=== PATIENT | male | born 1935 | race Two or more races ===

== ENCOUNTER 2020-12-11 10:34 | Inpatient (IN) | payer MEDICARE, OTHER ==
[~2020-12-11] VITALS: Ht 170.2 cm; Wt 60.3 kg
--- NOTE | 2020-12-11 10:45 | NUR ---
The patient is [id number], c/o right hip pain s/p tripped and fall, -ko,-deformity. The patient rates pain 8/10. Denies any numbness/tingling in the extremity. In room air and denies SOB. Respiration regular and unlabored. Warm blanket provided for comfort. Will continue to monitor the patient.
--- NOTE | 2020-12-11 12:38 | NUR ---
IV LINE ESTABLISHED ON LAC 20G. BLOOD DRAWN. COVID SWAB DONE
[2020-12-11 12:50] LABS: BASOPHILS # (AUTO) 0.1 /CMM (0.0-0.2); BASOPHILS % (AUTO) 0.7 % (0.0-2.0); EOSINOPHILS % (AUTO) 0.4 % (0.0-6.0); HEMATOCRIT 43 % (39-51); LYMPHOCYTES # (AUTO) 0.5 /CMM (0.8-4.8); LYMPHOCYTES % (AUTO) 6.4 % (20.0-44.0); MEAN CORPUSCULAR HGB CONC 33 g/dl (31.0-36.0); MEAN CORPUSCULAR VOLUME 97 fL (80-96); MONOCYTES # (AUTO) 0.5 /CMM (0.1-1.30); MONOCYTES % (AUTO) 6.1 % (2.0-12.0); NEUTROPHILS # (AUTO) 7.3 /CMM (1.8-8.9); NEUTROPHILS % (AUTO) 86.4 % (43.0-81.0); PLATELET COUNT (AUTO) 195 /CMM (150-450); RED BLOOD CELL COUNT(AUTO) 4.43 MIL/uL (4.5-6.0); WHITE BLOOD COUNT (AUTO) 8.4 K/uL (4.3-11.0)
[2020-12-11 13:02] LABS: ALBUMIN 3.7 g/dL (3.4-5.0); BILIRUBIN,DIRECT 0.3 mg/dL (0.0-0.2); BILIRUBIN,TOTAL 1.9 mg/dL (0.2-1.0); CREATININE 0.8 mg/dL (0.6-1.3); POTASSIUM 4.3 mmol/L (3.5-5.1); TOTAL PROTEIN, SERUM 7.9 g/dL (6.4-8.2)
--- NOTE | 2020-12-11 13:21 | NUR ---
CALLED NURSING SUP FOR NEGATIVE COVID RESULT.
--- NOTE | 2020-12-11 14:45 | NUR ---
pt transport to unit on gurney with emt @ bedside on stable condition.
--- NOTE | 2020-12-11 15:15 | NUR ---
wheeled patient via gurney accompanied by RN and emt in no distress. RN at bedside to assume care.
[2020-12-11] MEDS ORDERED: Z GUARD REMEDY 2 OZ OINT TP PRN (15:30)
[2020-12-11] MEDS ORDERED: ZOLPIDEM TARTRATE 5 MG TABLET PO PRN (15:30)
[2020-12-11] MEDS ORDERED: MAGNESIUM HYDROXIDE 30 ML UDC PO PRN (15:30)
[2020-12-11] MEDS ORDERED: ONDANSETRON HCL/PF 4 MG/2 ML VIAL IVP PRN (15:30)
[2020-12-11] MEDS ORDERED: MORPHINE SULFATE INJ 2 MG/ML DISP.SYRIN IV PRN (15:30)
[2020-12-11] MEDS ORDERED: ACETAMINOPHEN 325 MG TABLET PO PRN (15:30)
[2020-12-11] MEDS ORDERED: MAG HYDROX/AL HYDROX/SIMETH 30 ML UDC PO PRN (15:30)
[2020-12-11 16:00] VITALS: BP 163/96
--- NOTE | 2020-12-11 18:06 | NUR ---
RN CLOSING NOTE PATIENT ADMITTED FROM ER, ADMIT DX IS OSTEOPENIA. PATIENT IN BED, [place], REMAINS AO X 4, ABLE TO RESPONDS ALL STIMULI. SKIN IS WARM TO TOUCH, KEEP CLEAN/DRY, REFUSED SKIN CHECK DUE TO RIGHT HIP PAIN. RESPIRATORY EVEN AND UNLABORED ON ROOM AIR. KEPT ELEVATED HOB FOR ENSURE AIRWAY AND ASPIRATION PRECAUTION ALSO LOWEST BED POSITION FOR SAFETY. WILL ENDORSE EXHAUST MACHINE OPERATOR.
[2020-12-11] MEDS: HYDROCODONE/APAP 5/325MG TABLET PO PRN (18:23)
--- NOTE | 2020-12-11 18:24 | NUR ---
PATIENT REFUSED SCD FOR DVT PROPHYLAXIS.
--- NOTE | 2020-12-11 19:15 | NUR ---
MS RN OPENING NOTES: RECEIVED PATIENT IN BED, AWAKE. RESIGHINI. NO S/S OF DISTRESS NOTED. NO COMPLAIN OF PAIN. CALL LIGHT WITHIN REACH. BED ALARM ON. BED IN LOWEST AND LOCKED POSITION. DVT PUMPS REFUSED.
[2020-12-11 20:00] VITALS: BP 136/78
[2020-12-11] MEDS: ENOXAPARIN SODIUM 40 MG/0.4 ML DISP.SYRIN SQ SCH (20:35)
[2020-12-12] MEDS: HYDROCODONE/APAP 5/325MG TABLET PO PRN (04:10)
[2020-12-12 06:24] LABS: BASOPHILS % (AUTO) 0.8 % (0.0-2.0); EOSINOPHILS % (AUTO) 1.2 % (0.0-6.0); HEMATOCRIT 40 % (39-51); HEMOGLOBIN 13.3 g/dL (13.5-17.5); LYMPHOCYTES # (AUTO) 0.7 /CMM (0.8-4.8); LYMPHOCYTES % (AUTO) 12.3 % (20.0-44.0); MEAN CORPUSCULAR HGB CONC 33 g/dl (31.0-36.0); MEAN CORPUSCULAR VOLUME 95 fL (80-96); MONOCYTES # (AUTO) 0.8 /CMM (0.1-1.30); MONOCYTES % (AUTO) 13.1 % (2.0-12.0); NEUTROPHILS # (AUTO) 4.3 /CMM (1.8-8.9); NEUTROPHILS % (AUTO) 72.6 % (43.0-81.0); PLATELET COUNT (AUTO) 178 /CMM (150-450); RED BLOOD CELL COUNT(AUTO) 4.19 MIL/uL (4.5-6.0)
--- NOTE | 2020-12-12 07:37 | NUR ---
MS/RN NOTE RECEIVED REPORT FROM CLOTH PACKER NURSE. PATIENT SEEN LAYING IN HOSPITAL BED. A/O X4 HARD OF HEARING, NO ACUTE DISTRESS NOTED. PATIENT ON ROOM AIR, TOLERATING WELL, NO SOB NOTED, BREATHING EVEN NON LABORED. ALL SAFETY MEASURES IN PLACE, BED LOCKED AND IN LOWEST POSITION, CALL LIGHT WITHIN REACH. WILL CONTINUE TO MONITOR AND ENSURE SAFETY.
[2020-12-12 07:54] LABS: CALCIUM, SERUM 8.5 mg/dL (8.5-10.1); CARBON DIOXIDE 30 mmol/L (21-32); CHLORIDE 99 mmol/L (98-107); GLUCOSE 117 mg/dL (74-106); MAGNESIUM 1.9 mg/dL (1.8-2.4); PHOSPHORUS 2.8 mg/dL (2.5-4.9); SODIUM SERUM 135 mmol/L (136-145); UREA NITROGEN, BLOOD 13 mg/dL (7-18)
[2020-12-12 08:00] VITALS: BP 164/111
[2020-12-12 08:18] LABS: CREATININE 0.8 mg/dL (0.6-1.3)
[2020-12-12 08:57] LABS: CHOLESTEROL 214 mg/dL (<200); HDL CHOLESTEROL 60 mg/dL (40-60); LDL 141 mg/dL (0-99); TRIGLYCERIDES 71 mg/dL (30-150)
[2020-12-12] MEDS: VALSARTAN 80 MG TABLET PO SCH (08:58)
[2020-12-12 16:00] VITALS: BP 123/74
--- NOTE | 2020-12-12 18:21 | NUR ---
MS/RN CLOSING NOTE PATIENT SEEN LAYING IN HOSPITAL BED. A/O X4 HARD OF HEARING, NO ACUTE DISTRESS NOTED. PATIENT ON ROOM AIR, TOLERATING WELL, NO SOB NOTED, BREATHING EVEN NON LABORED. ALL SAFETY MEASURES IN PLACE, BED LOCKED AND IN LOWEST POSITION, CALL LIGHT WITHIN REACH. ALL NEEDS METT THROUGHOUT THE SHIFT. WILL ENDORSE TO PHARMACY PICKING TECHNICIAN NURSE.
--- NOTE | 2020-12-12 19:05 | NUR ---
MS RN OPENING NOTES: RECEIVED PATIENT IN BED, AWAKE, A/O X4, NO S/S OF DISTRESS NOTED. CALL LIGHT WITHIN REACH. BED ALARM ON. BED IN LOWEST AND LOCKED POSITION.
[2020-12-12 20:00] VITALS: BP 121/75
[2020-12-12] MEDS: ENOXAPARIN SODIUM 40 MG/0.4 ML DISP.SYRIN SQ SCH (21:34)
[2020-12-13] MEDS: HYDROCODONE/APAP 5/325MG TABLET PO PRN (04:34)
--- NOTE | 2020-12-13 05:56 | NUR ---
MS RN CLOSING NOTES: PATIENT IN BED, AWAKE, A/O X4. NO S/S OF DISTRESS NOTED. CALL LIGHT WITHIN REACH. BED ALARM ON. BED IN LOWEST AND LOCKED POSITION. NO ABDUCTION OF THE RIGHT HIP, INSTRUCTED THE PATIENT, VERBALIZED UNDERSTANDING. PATIENT ABLE TO TURN A LITTLE BIT TO THE LEFT SIDE WITH HELP AND WITH THE PILLOW BETWEEN THE LEGS, SKIN ASSESSMENT ON THE BACK AND SACRAL AREA DONE, WNL, NO SKIN PROBLEM. PATIENT VOIDED ON THE PAD, CLEANSED PERINEAL WITH SOAP AND WATER, KEPT DRY AND PAD CHANGED. PATIENT TOLERATED. WITH DVT PUMPS ON BOTH LEGS.
[2020-12-13 06:18] LABS: BASOPHILS % (AUTO) 0.3 % (0.0-2.0); EOSINOPHILS % (AUTO) 1.5 % (0.0-6.0); HEMATOCRIT 41 % (39-51); HEMOGLOBIN 13.6 g/dL (13.5-17.5); LYMPHOCYTES # (AUTO) 0.8 /CMM (0.8-4.8); LYMPHOCYTES % (AUTO) 12.6 % (20.0-44.0); MEAN CORPUSCULAR HGB CONC 33 g/dl (31.0-36.0); MEAN CORPUSCULAR VOLUME 96 fL (80-96); MONOCYTES # (AUTO) 0.6 /CMM (0.1-1.30); MONOCYTES % (AUTO) 10.8 % (2.0-12.0); NEUTROPHILS # (AUTO) 4.5 /CMM (1.8-8.9); NEUTROPHILS % (AUTO) 74.8 % (43.0-81.0); PLATELET COUNT (AUTO) 183 /CMM (150-450); RED BLOOD CELL COUNT(AUTO) 4.32 MIL/uL (4.5-6.0)
[2020-12-13 06:35] LABS: CALCIUM, SERUM 8.3 mg/dL (8.5-10.1); CREATININE 0.7 mg/dL (0.6-1.3); MAGNESIUM 1.7 mg/dL (1.8-2.4)
--- NOTE | 2020-12-13 07:15 | NUR ---
MS RN OPENING NOTES PATIENT IN BED EATING BREAKFAST, ALERT AND ORIENTED X 4. NO SIGNS OF DISTRESS OR SHORTNESS OF BREATH NOTED. SAFETY MEASURES IN PLACE, CALL LIGHT WITHIN REACH, BED ALARM ON, BED IN LOWEST POSITION. INSTRUCTED PATIENT ABOUT NO ABDUCTION OF THE RIGHT HIP, PATIENT VERBALIZED UNDERSTANDING. WILL CONTINUE TO MONITOR
[2020-12-13 07:48] VITALS: BP 131/90
[2020-12-13] MEDS: VALSARTAN 80 MG TABLET PO SCH (09:50)
[2020-12-13] MEDS: Magnesium 1GM/D5W 100ML PREMIX 100 ML IV SCH ×2 (09:51→12:06)
[2020-12-13 16:21] VITALS: BP 97/60
[2020-12-13] MEDS: GLUCERNA SHAKE 237 ML CAN PO SCH (17:36)
--- NOTE | 2020-12-13 19:00 | NUR ---
MS RN CLOSING NOTES PATIENT IN BED, ALERT AND ORIENTED X 4. NO SIGNS OF DISTRESS OR SHORTNESS OF BREATH NOTED. SAFETY MEASURES IN PLACE, CALL LIGHT WITHIN REACH, BED ALARM ON, BED IN LOWEST POSITION. INSTRUCTED PATIENT ABOUT NO ABDUCTION OF THE RIGHT HIP, PATIENT VERBALIZED UNDERSTANDING. WILL ENDORSE TO RE ETCHER NURSE FOR CONTINUITY OF CARE
--- NOTE | 2020-12-13 19:15 | NUR ---
MS/RN OPENING NOTE RECEIVED PATIENT RESTING IN BED. AWAKE, ALERT AND ORIENTED X 3. ABLE TO MAKE NEEDS KNOWN. NO COMPLAINTS OF PAIN AT THIS TIME. RESPIRATIONS EVEN AND UNLABORED. IV ACCESS TO LEFT AC INTACT, PATENT AND SALINE LOCKED. PATIENT IS WBAT TO RLE WITH NO ABDUCTION OF RIGHT HIP. CALL LIGHT WITHIN REACH. ASPIRATION, FALL AND SAFETY PRECAUTIONS MAINTAINED. WILL CONTINUE TO MONITOR.
[2020-12-13 20:00] VITALS: BP 100/62
[2020-12-13] MEDS: ENOXAPARIN SODIUM 40 MG/0.4 ML DISP.SYRIN SQ SCH (20:25)
[2020-12-14] MEDS: HYDROCODONE/APAP 5/325MG TABLET PO PRN ×3 (04:40→21:58)
--- NOTE | 2020-12-14 05:00 | NUR ---
MS/RN NOTE PATIENT WITH C/O PAIN TO RIGHT HIP, YELLING OUT WHEN TURNING IN BED. GIVEN PRN NORCO WITH POSITIVE EFFECT.
--- NOTE | 2020-12-14 06:20 | NUR ---
MS/RN CLOSING NOTE PATIENT CURRENTLY RESTING IN BED. AWAKE, ALERT AND ORIENTED X 3. ABLE TO MAKE NEEDS KNOWN. NO COMPLAINTS OF PAIN AT THIS TIME. RESPIRATIONS EVEN AND UNLABORED. IV ACCESS TO LEFT AC INTACT, PATENT AND SALINE LOCKED. PATIENT IS WBAT TO RLE WITH NO ABDUCTION OF RIGHT HIP. CALL LIGHT WITHIN REACH. ASPIRATION, FALL AND SAFETY PRECAUTIONS MAINTAINED. WILL ENDORSE PLAN OF CARE TO ONCOMING SHIFT.
[2020-12-14 06:30] LABS: CALCIUM, SERUM 8.7 mg/dL (8.5-10.1); CREATININE 0.7 mg/dL (0.6-1.3); MAGNESIUM 2.2 mg/dL (1.8-2.4); POTASSIUM 3.8 mmol/L (3.5-5.1)
[2020-12-14 08:00] VITALS: BP 119/73
--- NOTE | 2020-12-14 08:00 | NUR ---
RN OPENING NOTE PATIENT AWAKE IN BED WATCHING TELEVISION. A/O X3 AND UPPER SORBIAN SPEAKING. CURRENTLY ON RA WITH NO SOB OR RESPIRATORY DISTRESS PRESENT.. NO COMPLAINT OF PAIN OR NAUSEA. NO EDEMA PRESENT. HEEL REDNESS PRESENT. ON BEDREST DUE TO R HIP FX. L LE SKIN TEAR PRESENT. HL PRESENT ON L AC 20G. SAFETY MEASURES IN PLACE. SIDE RAILS RAISED. BED LOWERED. CALL LIGHT WITHIN REACH. WILL CONTINUE TO MONITOR.
[2020-12-14] MEDS: VALSARTAN 80 MG TABLET PO SCH (08:54)
[2020-12-14] MEDS: GLUCERNA SHAKE 237 ML CAN PO SCH ×3 (08:55→17:08)
--- NOTE | 2020-12-14 09:35 | NUR ---
WOUND CARE CONSULT: PT PRESENTS WITH CLOSED SKIN TEAR TO LEFT LOWER LEG AND DISCOLORATION TO LOWER LEGS, PRESENT ON ADMISSION. PT REFUSED TO TURN FOR FULL SKIN ASSESSMENT AND BACK AND BUTTOCKS. PT REPORTS RT HIP PAIN. RN AWARE. RECOMMENDATIONS MADE FOR SKIN PROTECTION. DISCUSSED WITH NURSING STAFF. IN AGREEMENT WITH PLAN OF CARE. Addendum: 12/14/20 at 0937 by SHARYN FLAHERTY Amended: Links added. Addendum: 12/14/20 at 1013 by SHARYN MCKEEU PT ALLOWED SKIN ASSESSMENT OF BACK AND SACRUM AFTER HAVING PAIN MEDICATION. BLANCHABLE REDNESS NOTED TO SACRUM. RECOMMENDATIONS MADE FOR SKIN PROTECTION AND DISCUSSED WITH NURSING STAFF.
[2020-12-14 15:50] VITALS: BP 108/60
--- NOTE | 2020-12-14 18:18 | NUR ---
RN CLOSING NOTE PATIENT AWAKE IN BED WATCHING TELEVISION. A/O X3 AND [place] SPEAKING. CURRENTLY ON RA WITH NO SOB OR RESPIRATORY DISTRESS PRESENT.. NO COMPLAINT OF PAIN OR NAUSEA. NO EDEMA PRESENT. HEEL REDNESS PRESENT. ON BEDREST DUE TO R HIP FX. L LE SKIN TEAR PRESENT. HL PRESENT ON L AC 20G. ROUTINE MEDS GIVEN. SAFETY MEASURES IN PLACE. SIDE RAILS RAISED. BED LOWERED. CALL LIGHT WITHIN REACH. REPORT TO BE GIVEN TO NIGHT NURSE FOR DOE
--- NOTE | 2020-12-14 19:15 | NUR ---
MS RN OPENING NOTES: RECEIVED PATIENT IN BED, AWAKE, A/O X3. NO S/S OF DISTRESS NOTED. CALL LIGHT WITHIN REACH. BED ALARM ON. BED IN LOWEST AND LOCKED POSITION. WITH CONDOM CATHETER, DRAINING YELLOW COLORED URINE. WITH DVT PUMPS ON BILATERAL LEGS ON.
[2020-12-14 20:00] VITALS: BP 118/67
[2020-12-14] MEDS: ENOXAPARIN SODIUM 40 MG/0.4 ML DISP.SYRIN SQ SCH (22:01)
[2020-12-15] MEDS: HYDROCODONE/APAP 5/325MG TABLET PO PRN ×3 (04:56→16:58)
--- NOTE | 2020-12-15 05:44 | NUR ---
MS RN CLOSING NOTES: PATIENT IN BED, ASLEEP, NO S/S OF DISTRESS NOTED. CALL LIGHT WITHIN REACH. BED ALARM ON. BED IN LOWEST AND LOCKED POSITION. BEDREST. TURNED AND REPOSITIONED [id number]. OFFLOADED. NO ABDUCTION OF THE RIGHT HIP DONE. CONDOM CATHETER INTACT.
[2020-12-15 06:26] LABS: BASOPHILS % (AUTO) 0.7 % (0.0-2.0); EOSINOPHILS % (AUTO) 4.4 % (0.0-6.0); HEMATOCRIT 40 % (39-51); LYMPHOCYTES # (AUTO) 0.9 /CMM (0.8-4.8); LYMPHOCYTES % (AUTO) 19.9 % (20.0-44.0); MEAN CORPUSCULAR HGB CONC 33 g/dl (31.0-36.0); MEAN CORPUSCULAR VOLUME 97 fL (80-96); MONOCYTES # (AUTO) 0.5 /CMM (0.1-1.30); NEUTROPHILS # (AUTO) 2.9 /CMM (1.8-8.9); PLATELET COUNT (AUTO) 206 /CMM (150-450); RED BLOOD CELL COUNT(AUTO) 4.09 MIL/uL (4.5-6.0); WHITE BLOOD COUNT (AUTO) 4.5 K/uL (4.3-11.0)
[2020-12-15 07:02] LABS: CALCIUM, SERUM 8.7 mg/dL (8.5-10.1); CREATININE 0.7 mg/dL (0.6-1.3); MAGNESIUM 1.9 mg/dL (1.8-2.4)
[2020-12-15 08:00] VITALS: BP 110/61
[2020-12-15] MEDS: GLUCERNA SHAKE 237 ML CAN PO SCH ×3 (08:14→17:33)
--- NOTE | 2020-12-15 08:14 | NUR ---
MS/RN OPENING NOTE RECEIVED PATIENT FROM MOLD BLOWER NURSE. PATIENT IS SEEN LAYING IN BED. A/O X4 HARD OF HEARING, NO ACUTE DISTRESS NOTED AT THIS TIME. PATIENT ON ROOM AIR, TOLERATING WELL, NO SOB NOTED, BREATHING EVEN NON LABORED. SAFETY MEASURES IN PLACE, BED LOCKED AND IN LOWEST POSITION, CALL LIGHT WITHIN REACH. WILL CONTINUE TO MONITOR AND ENSURE SAFETY.
[2020-12-15] MEDS: VALSARTAN 80 MG TABLET PO SCH (08:27)
[2020-12-15 16:00] VITALS: BP 109/66
--- NOTE | 2020-12-15 17:52 | NUR ---
MS STARCH AND PROSIZE MIXER NOTE PATIENT DISCHARGED TO [facility]IA AMBULANCE, ACCOMPANIED BY TWO EMT'S. VITALS STABLE, A/O X4, NO PAIN OR RESPIRATORY DISTRESS NOTED. BREATHING EVEN AND NON LABORED. PATIENT ATE DINNER BEFORE HE LEFT. IV TAKEN OUT, WRISTBAND REMOVED. EXITCARE AND EDUCATION MATERIALS GIVEN TO PATIENT.
== END 2020-12-15 18:04 | DRG 536 ==
LOC: EDBD 10:37 → ER 10:37 → MED 15:21
PROVIDERS: ADMIT Nurse Practitioner Family; ATTEND Nurse Practitioner Acute Care
DX: S72.111A Displaced fracture of greater trochanter of right femur, initial encounter for closed fracture (principal); D68.59 Other primary thrombophilia; W01.0XXA Fall on same level from slipping, tripping and stumbling without subsequent striking against object, initial encounter; Y92.009 Unspecified place in unspecified non-institutional (private) residence as the place of occurrence of the external cause; Z88.0 Allergy status to penicillin; E11.9 Type 2 diabetes mellitus without complications; I10 Essential (primary) hypertension; Z74.09 Other reduced mobility; M19.90 Unspecified osteoarthritis, unspecified site; N40.0 Benign prostatic hyperplasia without lower urinary tract symptoms; Z85.819 Personal history of malignant neoplasm of unspecified site of lip, oral cavity, and pharynx; Z92.3 Personal history of irradiation; E80.7 Disorder of bilirubin metabolism, unspecified; I70.8 Atherosclerosis of other arteries; M85.80 Other specified disorders of bone density and structure, unspecified site
CPT/HCPCS: 36415; 71045-TC; 73502; 73700-TC; 80048-TC; 80061-TC; 80076-TC; 83735-TC; 84100-TC; 85025-TC; 85730-TC; 86850-TC; 87081-TC; 93307-TC; 97112-TC; 97530-TC; C9803; G0378; J1650; J3475; U0003